=== PATIENT | female | born 1995 | race African-American/Black ===

== ENCOUNTER 2020-01-28 02:37 | Emergency (ER) | payer OTHER, BC ==
[~2020-01-28] VITALS: Ht 175.3 cm; Wt 68.0 kg
[2020-01-28 02:43] VITALS: BP 133/71
[2020-01-28] MEDS ORDERED: ONDANSETRON 4 MG TAB.RAPDIS ONE (03:30)
[2020-01-28] MEDS ORDERED: CYCLOBENZAPRINE 10 MG TABLET ONE (03:30)
[2020-01-28] MEDS ORDERED: ONDANSETRON 4 MG TAB.RAPDIS SL ONE (03:30)
[2020-01-28] MEDS ORDERED: HYDROCODONE/APAP 5/325MG TABLET ONE (03:30)
[2020-01-28] MEDS ORDERED: HYDROCODONE/APAP 5/325MG TABLET PO ONE (03:30)
[2020-01-28] MEDS ORDERED: CYCLOBENZAPRINE 10 MG TABLET PO ONE (03:30)
== END 2020-01-28 03:47 | disposition home or self-care (01) ==
LOC: ER 02:42
DX: S16.1XXA Strain of muscle, fascia and tendon at neck level, initial encounter (principal); S00.83XA Contusion of other part of head, initial encounter; Z88.1 Allergy status to other antibiotic agents; V49.49XA Driver injured in collision with other motor vehicles in traffic accident, initial encounter; Y93.89 Activity, other specified; Y92.488 Other paved roadways as the place of occurrence of the external cause; Y99.8 Other external cause status
CPT/HCPCS: 99284; Q0162